=== PATIENT | male | born 1985 | race Caucasian/White ===

== ENCOUNTER 2017-11-08 00:21 | Emergency (ER) | payer SELFPAY ==
[2017-11-08] MEDS ORDERED: DOXYCYCLINE HYCLATE 100 MG TABLET PO ONE (01:50)
--- NOTE | 2017-11-08 01:53 | ER Document Report ---
ED General - General Chief Complaint: Abscess Stated Complaint: ABSCESS Time Seen by Provider: 11/08/17 01:41 Notes: Patient is 32-year-old male who presents with complaint of area of redness and swelling over his lower abdomen. He denies seeing a bug or anything bite him there. He says it has been there for approximately day. No other complaints at this time. No fevers. He does have 1 previous history of a staph infection of his right wrist that required incision and drainage. TRAVEL OUTSIDE OF THE [place] IN LAST 30 DAYS: No - Related Data Allergies/Adverse Reactions: No Known Allergies Allergy (Unverified 11/08/17 00:24) Past Medical History - Social History Smoking Status: Unknown if Ever Smoked Frequency of alcohol use: None Drug Abuse: None Family History: Reviewed & Not Pertinent Patient has suicidal ideation: No Patient has homicidal ideation: No Renal/ Medical History: Denies: Hx Peritoneal Dialysis Review of Systems - Review of Systems Notes: My Normal Review Basic REVIEW OF SYSTEMS: CONSTITUTIONAL : Denies fever, chills, or sweats. Denies recent illness. MUSCULOSKELETAL: Denies neck or back pain or joint pain or swelling. SKIN: Denies rash or skin lesions. NEUROLOGICAL: Denies altered mental status or loss of consciousness. Denies headache. Denies weakness or paralysis or loss of use of either side. Denies problems with gait or speech. Denies sensory or motor loss. ALL OTHER SYSTEMS REVIEWED AND NEGATIVE. Physical Exam - Vital signs Vitals: Temp Pulse Resp BP Pulse Ox 98.6 F 83 16 129/82 H 96 11/08/17 00:30 11/08/17 00:30 11/08/17 00:30 11/08/17 00:30 11/08/17 00:30 - Notes Notes: General Appearance: Well nourished, alert, cooperative, no acute distress, no obvious discomfort. Vitals: reviewed, See vital signs table. Abdomen: Normal BS, soft, No rigidity, patient has a small red bump just inferior to the umbilicus. Appears to be of an area where he shaved hair. Findings are consistent with a infected hair follicle. Approximately 3 cm surrounding erythema. I did do a bedside ultrasound and there is no pus pocket at this time. Skin: warm, dry, appropriate color, no rash Neuro: speech clear, oriented x 3, normal affect, responds appropriately to questions. Course - Re-evaluation Re-evalutation: 11/08/17 05:10 Patient replaced on antibiotics and encouraged to use warm compresses. Informed him if he gets any increased swelling, spreading redness, feels that the area is worsening then he should return to the ER for reevaluation to make sure he is not developing abscess. At this time there is no evidence of abscess on exam or bedside ultrasound. Patient agrees with plan will be discharged home. I did inform the patient that doxycycline will make his skin sensitive to the sun and therefore he is to be very careful and keeping his skin covered when out in the sun. Dictation of this chart was performed using voice recognition software; therefore, there may be some unintended grammatical errors. - Vital Signs Vital signs: Temp Pulse Resp BP Pulse Ox 98.0 F 81 16 119/74 97 11/08/17 01:56 11/08/17 01:56 11/08/17 01:56 11/08/17 01:56 11/08/17 01:56 Discharge - Discharge Clinical Impression: Hair follicle infection Condition: Good Disposition: HOME, SELF-CARE Additional Instructions: Please apply warm compresses to the affected area 3 times a day for 20 minutes at a time. please take the antibiotics as prescribed. please return to the ER immediately if you develop increasing swelling, spreading redness, fevers, or feel that you are worsening in any way. Follow up with a doctor in 3-4 days for reevaluation. Prescriptions: Doxycycline Hyclate 100 mg PO BID #14 capsule
[2017-11-08 01:57] VITALS: BP 119/74
== END 2017-11-08 02:06 | disposition home or self-care (01) ==
LOC: ER 00:21
DX: L73.9 Follicular disorder, unspecified (principal)
CPT/HCPCS: 99282